=== PATIENT | female | born 1995 | race Caucasian/White ===

== ENCOUNTER 2024-04-16 16:23 | Emergency (ER) | payer OTHER, SELFPAY ==
[2024-04-16 16:41] VITALS: BP 126/84; PULSE 62; O2SAT 96
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
[2024-04-16 17:19] VITALS: BP 81/44; PULSE 70; RESP 18; TEMP 36.8; O2SAT 98; BMI 20.6
[2024-04-16 17:37] VITALS: BP 81/44; PULSE 70; RESP 18; TEMP 36.8; O2SAT 98
--- OUTSIDE RECORDS SUMMARY | 2024-04-16 18:07 | XMS_ITS | Continuity of Care Document ---
Author Organization [facility] Address [address] [place] [address]- Care Team Providers Care Core Dipper Name Role Phone Singer ROSENBERG, Wang W Primary Care Physician [phone] Encounter [facility] Date(s): 02/27/24 - 03/28/[address] Encounter Type: Triage Allergies, Adverse Reactions, Alerts No Known Medication Allergies Immunizations Given and Recorded Vaccine Date Status Refusal Reason influenza virus vaccine, inactivated 02/27/22 William rded SARS-CoV-2 (COVID-19) Ad26 vaccine 07/06/20 Given tetanus/diphtheria/pertussis, acel(Tdap) 1 08/13/15 Given Human Papillomavirus Vaccine 2 11/14/12 Given Human Papillomavirus Vaccine 3 01/23/12 Given Human Papillomavirus Vaccine 4 10/31/11 Given Varicella Virus Vaccine 07/23/10 Given Varicella Virus Vaccine 05/08/98 Given Tet/Diphth/Acel, Pertussis (oldterm) 5 05/06/09 Gi gal Menactra (oldterm) 6 05/06/09 Given Measles/Mumps/Rubella Virus Vaccine 02/18/02 Given Measles/Mumps/Rubella Virus Vaccine 06/18/98 Given Poliovirus Vaccine, Inactivated 02/18/02 Given Poliovirus Vaccine, Inactivated 08/21/98 Given Poliovirus Vaccine, Inactivated 97 Given Poliovirus Vaccine, Inactivated 97 Given diphtheria/tetanus/pertussis, acel(DTaP) 02/18/02 Given diphtheria/tetanus/pertussis, acel(DTaP) 08/21/98 Given diphtheria/tetanus/pertussis, acel(DTaP) 97 Given diphtheria/tetanus/pertussis, acel(DTaP) 97 Given diphtheria/tetanus/pertussis, acel(DTaP) 97 Given haemophilus b conjugate (PRP-OMP)vaccine 08/21/98 Given haemophilus b conjugate (PRP-OMP)vaccine 04/09/98 Given haemophilus b conjugate (PRP-OMP)vaccine 97 Given haemophilus b conjugate (PRP-OMP)vaccine 97 Given hepatitis B pediatric vaccine 97 Given hepatitis B pediatric vaccine 97 Given hepatitis B pediatric vaccine 97 Given 1Result Comment: [08/13/2015] GIVEN PER AC 2Admin Note: vis form given date 08/10/2012 3Admin Note: vis form given 4Admin Note: VIS 05/08 5Admin Note: VIS GIVEN 6Admin Note: VIS GIVEN Medications Diflucan 150 mg oral tablet See Instructions, 1 tablet By Mouth every 3 days for 3 doses then once a week for 3 months, # 15 tablet, 0 Refills, Soft Stop, 01/29/24 3:48:00 PM EST, Tablet, [facility]/pharmacy #[id number], Partial fill upon patient request if the prescription is for a schedule II opioid drug., 154, cm, 01/29/24 14:48:00 EST,Height, 45.7, kg, 12/14/23 22:51:00 EDT, Dry Weight Start Date: 01/29/24 Status: Ordered Quantity: 15.0 Unit: tablet Repeat number: 1 gabapentin 800 mg oral tablet 0 Refills, Maintenance, 05/20/22 4:30:00 PM EST, Partial fill upon patient request if the prescription is for a schedule II opioid drug. Start Date: 05/20/22 Status: Ordered Repeat number: 1 Methadone = 25 mg, Daily, 0 Refills, Maintenance, 12/05/17 3:51:34 PM EDT Start Date: 12/05/17 Status: Ordered Repeat number: 1 Nicotine 7 mg/24 hour patch 1 patch, Topically, Daily, # 30 patch, 1 Refills, Maintenance, 05/20/22 4:57:00 PM EST, Patch, [facility] #[id number], Partial fill upon patient request if the prescription is for a schedule II opioid drug., 1 patch Topically Daily, 155, cm, 05/20/22 16:25:00 EST, Height, 53.5, kg, 04/23/22 11:18:00 EST, Dry Weight Start Date: 05/20/22 Status: Ordered Quantity: 30.0 Unit: patch Repeat number: 2 pramipexole 0.125 mg oral tablet 1 tablet = 0.125 mg, By Mouth, Daily, 0 Refills, Maintenance, 01/29/24 2:47:00 PM EST, Partial fill upon patient request if the prescription is for a schedule II opioid drug. Start Date: 01/29/24 Status: Ordered Repeat number: 1 QUEtiapine 50 mg oral tablet 0 Refills, Maintenance, 05/20/22 4:30:00 PM EST, Partial fill upon patient request if the prescription is for a schedule II opioid drug. Start Date: 05/20/22 Status: Ordered Repeat number: 1 Problem List Condition Confirmation Course Effective Dates Status Health St atus Informant Adopted Confirmed 2002 Active Anxiety Confirmed Active Anxiety Confirmed 08/18/23 Active Cigarette smoker Confirmed Active Closed fracture of calcaneus Confirmed 2011 Active Depression Confirmed Active Controlled substance agreement signed Confirmed Active Healthy adolescent Confirmed Active Nicotine dependence Confirmed 08/18/23 Active Opioid use disorder Confirmed Active Dyspareunia in female Confirmed Active Routine screening for STI (sexually transmitted infection) Confirmed Active Bilateral pulmonary embolism Confirmed Active Pulmonary embolism Confirmed 08/18/23 Active Recurrent candidiasis of vagina Confirmed Active Social History Social History Type Response Smoking Status Current every day sm oker; Tobacco user in household: No; Other: 3 CIGS A DAY; entered on: 01/18/16 Sex Sex Representation Female (finding) Patient Care team information Care Team Personnel Name: Wang Robles DO Position: [facility] Physician - Hospital Medicine Member Role: PCP Address: [address] [place], [place] [address] Telecom: Name: Frieda Sanon DO Position: [facility] MANAGER TARGET MD Member Role: Lifetime MANAGER TARGET Physician Address: [address] [place], [place] [address]s [place] [facility] Telecom: Care Team Related Persons Name: KLEBER LOZOYA Name: JADON LOZOYA Name: GARRET SHETTY Name: PATIENT STATES, NONE Insurance Providers Guarantor name: ANGLE LOZOYA [facility] Plan Information #: 1 Payer: [facility] [employer] Member Number: NA Policy Number: NA Group Number: NA
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
--- OUTSIDE RECORDS SUMMARY | 2024-04-16 18:08 | XMS_ITS | Clinical Summary ---
Author Organization [employer] Address [address] [facility] [address] [place] [address] Care Team Providers Care Squeegee Operator Name Role Phone Kodi Duval DDS Primary Care Provider [phone] Allergies No known active allergies Medications baclofen (Lioresal) 20 MG tablet Take 20 mg by mouth at bedtime. 11/22/2022 Active gabapentin (Neurontin) 600 MG tablet Take 600 mg by mouth at bedtime. 10/28/2022 Active hydrOXYzine pamoate (Vistaril) 25 MG capsule TAKE ONE (1) CAPSULE BY MOUTH TWICE A DAY, NEEDED AND TWO (2) CAPSULES AT BEDTIME, NEEDED 11/22/2022 Active OXcarbazepine (Trileptal) 150 MG tablet Take 150 mg by mouth 2 times daily. 11/22/2022 Active QUEtiapine (SEROquel) 25 MG tablet TAKE 1-3 TABLETS BY MOUTH AT BEDTIME 11/22/2022 Active methadone (Dolophine) 10 MG/5ML solution Take by mouth. Active Active Problems Problem Noted Date Diagnosed Date Fracture of tooth enamel and dentin 03/29/2023 Social History Tobacco Use Types Packs/Day Years Used Date Smoking Tobacco: Every Day Cigarettes Smokeless Tobacco: Never Tobacco Cessation:Ready to Q uit: Not Asked; Counseling Given: Not Answered Alcohol Use Standard Drinks/Week Comments Never 0 (1 standard drink = 0.6 oz pur e alcohol) Comments Unknown Sex and Gender Information Value Date Recorded Sex Assigned at Female 11/29/2022 3:07 PM EDT Legal Sex Female 8:40 PM EST Gender Identity Female 02/04/2022 8:40 PM EST Sexual Orientation Straight 11/29/2022 3: 07 PM EDT Last Filed Vital Signs Vital Sign Reading Time Taken Comments Blood Pressure 105/70 01/18/2023 2:40 PM EDT Pulse 91 11/29/2022 3:27 PM EDT Temperature - - Respiratory Rate - - Oxygen Saturation - - Inhaled Oxygen Concentration - - Weight - - Height - - Body Mass Index - - Plan of Treatment Health Maintenance Due Date Last Done Comments Depression Screening 1997 HIV Screening 1997 SDOH Screening 1997 Pneumococcal Vaccine: Pediatrics (0 to 5 Years) and At-Risk Patients (6 to 64 Years) (1 of 2 - PCV) 2003 Alcohol/Substance Use Screening 2009 Hepatitis C Screening 2015 Pap Smear 2018 Dental Oral Exam 05/31/2023 11/29/2022 Dental Prophylaxis 05/31/2023 11/29/2022 COVID-19 Vaccine (2 - season) 2023 07/06/2020 Influenza Vaccine (#1) 2023 02/27/2022, 2021 Dental X-Ray: Bitewings 12/01/2023 11/29/2022 Tobacco Screening 01/19/2024 01/18/2023 DTaP/Tdap/Td Vaccines (7 - Td or Tdap) 08/12/2025 08/13/2015, 02/18/2002, 08/21/1998, Additional history exists Dental X-Ray: Full Mouth 11/30/2025 11/29/2022 Zoster Vaccines (1 of 2) 2047 RSV Patients and Patients Aged 60 years or older (1 - 1-dose 75+ series) 02/17/2072 Hepatitis B Vaccines Completed 1997, 1997, 1997 HIB Vaccines Completed 08/21/1998, 03/27, 1997, Additional history exists IPV Vaccines Completed 02/18/2002, 07/26, 1997, Additional history exists Meningococcal Vaccine Aged Out 05/06/2009 No yuliya ron eligible based on patient's age to complete this topic HPV Vaccines Completed 11/14/2012, 12/26, 10/31/2011 Hepatitis A Vaccines Aged Out No long er eligible based on patient's age to complete this topic RSV under 20 months Aged Out No longe r eligible based on patient's age to complete this topic Rotavirus Vaccines Aged Out No longer eligible based on patient's age to complete this topic Procedures Procedure Name Priority Date/Time Associated Diagnosis Comments PROPHYLAXIS - ADULT Routine 11/29/2022 3 :00 PM EDT DIAGNOSTIC - DIAGNOSTIC IMAGING - INTRAORAL - COMPREHENSIVE SERIES OF RADIOGRAPHIC IMAGES Routine 11/29/2022 3:00 PM EDT COMPREHENSIVE ORAL EVALUATION - NEW OR ESTABLISHED PATIENT Routine 11/29/2022 3:00 PM EDT from Last 3 Months or Most Recently Relevant to Health [place] [id number] [facility] [place] [address] Care Teams Squeegee Operator Relationship Specialty Start Date End Date Kodi Duval DDS [address] [place] [address] PCP - General Dentist 01/21/22
--- OUTSIDE RECORDS SUMMARY | 2024-04-16 18:08 | XMS_ITS | Data Portability ---
Author Organization [facility], [employer] Address [address] [place] [address] CHAR[place] CANTU [address] Assessment Encounter Date Assessment Date Assessment LastModified by Organization Details LastModified Time 08/22/2023 08/22/2023 30 minutes spent on date of service on chart review, direct time spent with patient, and documentation of clinical encounter. [email or web address] Not available 08/22/2023 12:19:49 Plan of Treatment Reminders Order Date Submit Date Provider Last Modified By Organization Details Last Modified Time Details Appointments None record ed. Lab None record ed. Referral None record ed. Procedures None record ed. Surgeries None record ed. Imaging None record ed. Medication Orders None record ed. Patient TargetsNo targets recorded. Patient InstructionsNo instructions recorded. Reason for Referral None Reported. Problems Name Problem SNOMED Code Status Onset Date Resolution Date Notes Provider Name and Address Organization Details Recorded Time Anxiety 29953235 Active 024 Hemalatha petit [facility], [facility] 4 11:54:56 Pulmonary embolism 20540383 Active 024 Hemalatha petit [facility], [facility] 4 11:55:22 Nicotine dependence 62857781 Active 024 Hemalatha petit null, [facility] 4 11:55:35 Depressive disorder 52627277 Active 024 Hemalatha petit null, [facility] 4 11:55:42 Opioid dependence 56456790 Active 024 Hemalatha petit null, [facility] 4 11:55:53 Generalized anxiety disorder 90453073 Active 024 Elana Russell NP 1 [facility] [address] [place], [address], [place] [facility] 4 12:15:12 Problem Notes None recorded. Procedures Surgical History Date Name Laterality Status Provider Name and Address Organization Details Recorded Time Date of Last Pap Smear completed Hemalatha [facility] 08/18/2023 11:54:36 Imaging Results None recorded. Procedure Notes None recorded. Medical Equipment None Reported. Medications Name Sig Start Date Stop Date Status Note LastModified by Organization Details LastModified Time metamucil 3-in-1 daily fiber 400 mg caps 08/17 completed Not Available Not Available Not Available quetiapine 25 mg tablet TAKE 3 TABLETS BY MOUTH EVERY DAY AT BEDTIME active Not Available Not Available No t Available terconazole 0.4 % vaginal cream INSERT 1 APPLICATO RFUL VAGINALLY AT BEDTIME FOR 7 DAYS. 08/17 completed Not Available Not Available Not Available oxcarbazepi ne 150 mg tablet TAKE 1 TABLET BY MOUTH TWICE A DAY 08/17 completed Not Available Not Available Not Available gabapentin 600 mg tablet TAKE 1 TABLET BY MOUTH EVERYDAY AT BEDTIME active Not Available Not Available No t Available trazodone 50 mg tablet TAKE 1 TABLET BY MOUTH EVERYDAY AT BEDTIME active Not Available Not Available No t Available ondansetron 8 mg disintegrat ing tablet TAKE 1 TABLET BY MOUTH EVERY 8 HOURS NEEDED FOR NAUSEA active Not Available Not Available No t Available baclofen 20 mg tablet TAKE 1 TABLET BY MOUTH EVERY DAY AT BEDTIME NEEDED active Not Available Not Available No t Available famotidine 20 mg tablet TAKE 1 TABLET BY MOUTH EVERY DAY 08/17 completed Not Available Not Available Not Available gabapentin 800 mg tablet TAKE ONE HALF (1/2) TO ONE (1) TABLET BY MOUTH TWICE A DAY 08/17 completed Not Available Not Available Not Available pramipexole 0.125 mg tablet TAKE 1 TABLET BY MOUTH EVERYDAY AT BEDTIME active Not Available Not Available No t Available docusate sodium 100 mg capsule TAKE 1 CAPSULE BY MOUTH 2 TIMES A DAY NEEDED FOR CONSTIPAT ION active Not Available Not Available No t Available hydroxyzine HCl 25 mg tablet TAKE TWO (2) TABLETS BY MOUTH TWICE A DAY AT 8AM AND NOON, AND THREE (3) TABLETS AT BEDTIME active Not Available Not Available No t Available lorazepam 1 mg tablet TAKE 1 TABLET BY MOUTH THREE TIMES A DAY NEEDED FOR ANXIETY 08/17 completed Not Available Not Available Not Available hydroxyzine pamoate 25 mg capsule TAKE ONE (1) CAPSULE BY MOUTH TWICE A DAY, NEEDED AND TWO (2) CAPSULES AT BEDTIME, NEEDED 08/17 completed Not Available Not Available Not Available atomoxetine 25 mg capsule TAKE 1 CAPSULE BY MOUTH EVERY DAY IN THE MORNING active Not Available Not Available No t Available quetiapine 50 mg tablet TAKE 1 TABLET BY MOUTH EVERYDAY AT BEDTIME 08/17 completed Not Available Not Available Not Available Metamucil 0.4 gram capsule 2 CAPSULE BY MOUTH 3 TIMES A DAY NEEDED FOR CONSTIPAT ION 08/17 completed Not Available Not Available Not Available Vitals None Recorded Social History None recorded. Functional Status None recorded. Mental Status None recorded. Family History Nothing Reported. Medical History No medical history recorded. Gynecological History Statement/Question Response Date of Last Pap Smear 03/15/2021 Obstetrics History GPAL:G 0 P 0 0 0 0 Past Encounters Encounter ID Performer Location Encounter Start Date Encounter Closed Date Diagnosis/Indication Diagnosis SNOMED-CT Code Diagnosis ICD10 Code Diagnosis Note [id number] Elana Russell NP Main Office 1 [facility] [address] [place] [address] 08/22/2023 11:44:40 08/22/2023 12:20:30 Patient new to provider [id number] 85259 Z76.89 Reviewed medical history with patient. Her focus was on her anxiety disorder, see below. Generalize d anxiety disorder 56099349 F41.1 Pt is followed by psychiatry Myranda Raphael. Patient states her anxiety is not controlled during the day. Patient states SSRIs, propranolo l, clonidine have not been helpful. She would like to come off gabapentin altogether so not willing to use this during the day. She is very fixated on her request for PRN clonazepam which I declined to prescribe. I discussed with her that her psychiatri c treatment should come from one provider, and ideally a psychiatri c provider in her case because her condition is not currently well managed. She was very upset and stated that she knows we prescribe benzodiaze pines to other people, and I again reviewed that this is in the setting of people who do not have a psychiatri c specialist they see regularly or are in the process of trying to get one, and generally we recommende d non-contro lled substances when possible, due to safety risks with benzos. I offered to place a referral to a different psychiatri c provider. I reviewed that benzodiaze pines are not preferred for management of anxiety alone due to safety concerns. As this is her only concern, and I have declined to prescribe the medication and instead deferred to her psychiatri c team, I do not feel as though I am a good fit for her PCP which I told her, so no follow up will be arranged. She was not happy with this. Health Concerns Section Related Observation LastModified by Organization Detai ls LastModified Time None Recorded Concern Status LastModified by Organization Details LastModified Time None Recorded Advance Directives Directive None Recorded Payers Encounter Date Sequence Insurance Name Policy Number Policy Starks Covered Member ID Starks Member ID Guarantor Name 08/22/2023 2 [place]: [facility] Kenzie Mckee [id number] Kenzie Mckee 08/22/2023 1 [facility] [employer] - [facility] (MEDICAID HMO) [id number] Kenzie Mckee [id number] Kenzie Mckee Notes Date Note Type Note Provider Name and Address Organization Details Recorded Time 08/22/2023 text/html This AV TH visit was arranged as new patient visit. Last PCP Dr. Betts @ [facility].She is on probation.PMH:ADHD: on strattera, working well.Insomnia: Gabapentin + seroquel, sometimes needs hydroxyzine.RLS: Pramipexole.Follows with psychiatric provider, Myranda Raphael. Wants me to take over prescribing her medications.Would like to come off seroquel + gabapentin but dose reduction causing withdrawal symptoms. Wants clonazepam.Hard time managing her anxiety. Has chronic panic attacks, clonazepam helpful. Anxiety regarding work, probation. Doesn't like SSRIs or hydroxyzine during the day. Clonidine and propranolol don't work . She is requesting that we prescribe benzodiazepenes because they are the only thing that helps. Myranda Raphael has not been helpful (per patient, she recommended increasing hydroxyzine, or gabapentin during the day) and she is hard to see.Hx opiod addiction. Elana Russell, MAYRA 1 [facility],[address], [place], [address], [facility] - [facility] 08/22/2023 13:10:03 OBGyn Episode No OBEpisode recorded.
== END 2024-04-16 17:56 | disposition home or self-care (01) ==
PROVIDERS: Emergency Provider Emergency Medicine Emergency Medical Services; PCP Family Medicine
DX: S39.92XA Unspecified injury of lower back, initial encounter (principal); F41.9 Anxiety disorder, unspecified; V43.52XA Car driver injured in collision with other type car in traffic accident, initial encounter; Y93.9 Activity, unspecified; Y92.488 Other paved roadways as the place of occurrence of the external cause; Y99.8 Other external cause status
CPT/HCPCS: 99282